=== PATIENT | female | born 1995 | race Caucasian/White ===

== ENCOUNTER 2020-10-09 04:51 | Emergency (ER) | payer BC ==
--- NOTE | 2020-10-09 05:23 | EDM.PDOC ---
ED HPI GENERAL MEDICAL PROBLEM - General Chief Complaint: General Stated Complaint: ALMOST PASSED OUT Time Seen by Provider: 10/09/20 04:59 Source of Information: Reports: Patient History Limitations: Reports: No Limitations - History of Present Illness INITIAL COMMENTS - FREE TEXT/NARRATIVE: Patient is a 24-year-old female who states she felt very lightheaded and tremulous and that her heart was racing only for approximately 6 minutes prior to arrival. Patient does have a sport type watch which did record a heart rate of 136. Patient denies any chest pain at that time and was not short of breath. She was not diaphoretic. She has had a similar bout previously several years ago. She denies drinking alcohol or using street drugs. She denies any bloody or tarry looking stools. She has had no cough or fever or chills. Patient is not at risk for COVID-19. She is not on control and feels that she may be . Onset: Sudden Duration: Resolved Prior to Arrival Associated Symptoms: Reports: No Other Symptoms - Related Data Allergies Allergy/AdvReac Type Severity Reaction Status Date / Time No Known Allergies Allergy Verified 10/09/20 05:03 Home Meds: Home Meds . [No Known Home Meds] 10/09/20 [History] Past Medical History - Past Health History Medical/Surgical History: Denies Medical/Surgical History - Past Surgical History Musculoskeletal Surgical History: Reports: Arthroscopic Knee Social & Family History - Tobacco Use Tobacco Use Status *Q: Never Tobacco User ED ROS GENERAL - Review of Systems Review Of Systems: Comprehensive ROS is negative, except as noted in HPI. ED EXAM, GENERAL - Physical Exam Exam: See Below Exam Limited By: No Limitations General Appearance: Alert, No Apparent Distress Head: Normocephalic Neck: Normal Inspection, Supple Respiratory/Chest: No Respiratory Distress, Lungs Clear, Normal Breath Sounds Cardiovascular: Regular Rate, Rhythm, No JVD, No Murmur GI/Abdominal: Normal Bowel Sounds, Soft, Non-Tender Back Exam: Normal Inspection Extremities: Normal Inspection Neurological: Alert, Oriented Psychiatric: Normal Affect, Normal Mood Skin Exam: Warm, Dry, Normal Color Course - Vital Signs Text/Narrative:: Patient refuses EKG per rhythm strip shows a very normal sinus rhythm. Patient's lab work shows that she is not and her CBC and CMP are within normal limits. Patient did not have another episode while in the emergency department at this time I am recommending she follow-up with a electrical assembly supervisor and to go over to the [facility] to get a cardiac exercise physiologist she can wear at home for 1 to 2 months. She may need to be on cardiac medicine if we can capture her tachycardia and she is instructed to return to ER if having symptoms or feeling worse and to be very cautious with driving and to immediately puller over symptoms were to recur. Last Recorded V/S: Last Vital Signs Temp 98.5 F 10/09/20 05:00 Pulse 82 10/09/20 05:00 Resp 18 10/09/20 05:00 BP 136/85 10/09/20 05:00 Pulse Ox 100 10/09/20 05:00 Orthostatic Blood Pressure [ 128/93 Standing] Orthostatic Blood Pressure [ 128/91 Sitting] Orthostatic Blood Pressure [ 118/79 Supine] - Orders/Labs/Meds Orders: Active Orders 24 hr Category Date Time Status Orthostatic Vital Signs [RC] ASDIRECTED Care 10/09/20 05:28 Active CBC WITH MANUAL DIFF [HEME] Stat Lab 10/09/20 05:47 Results Labs: Laboratory Tests 10/09/20 10/09/20 10/09/20 Range/Units 05:35 05:47 05:47 WBC 5.16 (3.98-10.04) K/mm3 RBC 4.76 (3.98-5.22) M/mm3 Hgb 14.7 (11.2-15.7) gm/dl Hct 43.3 (34.1-44.9) % MCV 91.0 (79.4-94.8) fl MCH 30.9 (25.6-32.2) pg MCHC 33.9 (32.2-35.5) g/dl RDW Std Deviation 46.6 H (36.4-46.3) fL Plt Count 243 (182-369) K/mm3 MPV 10.3 (9.4-12.3) fl Sodium 142 (136-145) mEq/L Potassium 4.0 (3.5-5.1) mEq/L Chloride 105 (98-107) mEq/L Carbon Dioxide 25 (21-32) mEq/L Anion Gap 16.0 H (5-15) BUN 13 (7-18) mg/dL Creatinine 0.8 (0.55-1.02) mg/dL Est Cr Clr Drug Dosing TNP Estimated GFR (MDRD) > 60 (>60) mL/min BUN/Creatinine Ratio 16.3 (14-18) Glucose 96 (70-99) mg/dL Calcium 8.6 (8.5-10.1) mg/dL Total Bilirubin 0.2 (0.2-1.0) mg/dL AST 17 (15-37) U/L ALT 17 (14-59) U/L Alkaline Phosphatase 73 (46-116) U/L Total Protein 7.8 (6.4-8.2) g/dl Albumin 4.0 (3.4-5.0) g/dl Globulin 3.8 gm/dL Albumin/Globulin Ratio 1.1 (1-2) Urine HCG, Qual Negative (NEGATIVE) Departure - Departure Time of Disposition: 06:39 Disposition: Home, Self-Care 01 Condition: Good Clinical Impression: Tachycardia, Lightheadedness - Discharge Information Instructions: Dizziness Referrals: PCP,None [Ordering Only Provider] - Forms: ED Department Discharge Additional Instructions: Follow-up with electrical assembly supervisor and [facility] for ZIO type monitor. Return to ER symptoms are worse. Sepsis Event Note (ED) - Evaluation Sepsis Screening Result: No Definite Risk - Focused Exam Vital Signs: Vital Signs Temp Pulse Resp BP Pulse Ox 10/09/20 05:00 98.5 F 82 18 136/85 100 - My Orders Last 24 Hours: My Active Orders 10/09/20 05:28 Orthostatic Vital Signs [RC] ASDIRECTED 10/09/20 05:47 CBC WITH MANUAL DIFF [HEME] Stat - Assessment/Plan Last 24 Hours: My Active Orders 10/09/20 05:28 Orthostatic Vital Signs [RC] ASDIRECTED 10/09/20 05:47 CBC WITH MANUAL DIFF [HEME] Stat
== END 2020-10-09 06:51 | disposition home or self-care (01) ==
LOC: JD.ED 04:51
DX: R42 Dizziness and giddiness (principal); R00.0 Tachycardia, unspecified
CPT/HCPCS: 36415; 80053; 81025; 85007; 85027; 99284

== ENCOUNTER 2021-07-17 00:26 | Inpatient (IN) | payer MEDICAID ==
[2021-07-17] MEDS ORDERED: Lidocaine 1% 50 ML MDV INJECT PRN (00:55)
[2021-07-17] MEDS ORDERED: Calcium Carbonate 500 MG Tab.Chew PO PRN (00:55)
[2021-07-17] MEDS ORDERED: Ondansetron 4 MG/2 ML SDV IVPUSH PRN (00:55)
[2021-07-17] MEDS ORDERED: Nalbuphine 10 MG/1 ML Vial IVPUSH PRN (00:55)
[2021-07-17] MEDS ORDERED: Sodium Chloride 0.9% 10 ML Syringe FLUSH PRN (00:55)
[2021-07-17] MEDS ORDERED: Acetaminophen 325 MG Tab PO PRN ×2 (00:55→13:25)
[2021-07-17] MEDS ORDERED: Oxytocin/Lactated Ringers 10 UNIT/1,000 ML BAG IV SCH ×2 (01:00)
[2021-07-17] MEDS: Lactated Ringers 1,000 ML IV SCH ×3 (01:11→04:38)
[2021-07-17] MEDS ORDERED: diphenhydrAMINE 50 MG/ML SDV IVPUSH PRN (04:22)
[2021-07-17] MEDS ORDERED: Bupivacaine/fentaNYL/NS 100 ML Bag EPIDUR PRN (04:22)
[2021-07-17] MEDS ORDERED: ePHEDrine 50 MG/ML SDV IVPUSH PRN (04:22)
[2021-07-17] MEDS ORDERED: fentaNYL 100 MCG/2 ML SDV EPIDUR PRN (04:22)
[2021-07-17] MEDS ORDERED: Sodium Chloride 0.9% 10 ML Syringe FLUSH SCH (09:00)
[2021-07-17] MEDS ORDERED: Docusate Sodium 100 MG Cap PO PRN (13:25)
[2021-07-17] MEDS ORDERED: Witch Hazel Medicated Pads 40/Jar TOP PRN (13:25)
[2021-07-17] MEDS ORDERED: Benzocaine/Menthol 20%-0.5% Spray 78 GM Cannister TOP PRN (13:25)
[2021-07-17] MEDS: Ibuprofen 600 MG Tab PO PRN (15:12)
[2021-07-18] MEDS: Ibuprofen 600 MG Tab PO PRN ×5 (00:26→19:12)
[2021-07-18] MEDS: Prenatal Multivitamin with Calcium/Folic Acid/Iron Tab PO SCH (08:26)
[2021-07-19] MEDS ORDERED: Bupivacaine 0.25% 10 ML SDV ONE
[2021-07-19] MEDS: Ibuprofen 600 MG Tab PO PRN ×3 (03:20→12:39)
[2021-07-19] MEDS: Prenatal Multivitamin with Calcium/Folic Acid/Iron Tab PO SCH (08:45)
== END 2021-07-19 16:05 | disposition home or self-care (01) | DRG 807 ==
LOC: JD.OBCHECK 00:26 → JD.OB 00:44 → OBSVTOIN 12:38 → JD.OB 12:38
PROVIDERS: ADMIT Obstetrics & Gynecology; ATTEND Obstetrics & Gynecology
PROC: 10907ZC Drainage of Amniotic Fluid, Therapeutic from Products of Conception, Via Natural or Artificial Opening (ICD-10-PCS; principal; 2021-07-17)
PROC: 10E0XZZ Delivery of Products of Conception, External Approach (ICD-10-PCS; 2021-07-17)
PROC: 0HQ9XZZ Repair Perineum Skin, External Approach (ICD-10-PCS; 2021-07-17)
PROC: 3E0R3BZ Introduction of Anesthetic Agent into Spinal Canal, Percutaneous Approach (ICD-10-PCS; 2021-07-17)
DX: O70.0 First degree perineal laceration during delivery (principal); Z37.0 Single live birth; Z3A.40 40 weeks gestation of pregnancy; Z20.822 Contact with and (suspected) exposure to COVID-19
CPT/HCPCS: 01967; 36415; 51702; 59025; 59409; 85025; 86592; 86850; 86900; 86901; A9270-GY; J2590; J3010; J3490; J7120; U0002

== ENCOUNTER 2023-12-25 11:13 | Inpatient (IN) | payer MEDICAID ==
[~2023-12-25 11:13] MED LIST: Ropivacaine 0.2% PF 2 MG/ML 20 ML SDV ONE
[2023-12-25] MEDS ORDERED: Lidocaine 1% 50 ML MDV INJECT PRN (11:30)
[2023-12-25] MEDS ORDERED: Oxytocin/0.9 % Sodium Chloride 30 UNIT/500 ML BAG IV SCH (11:30)
[2023-12-25] MEDS ORDERED: Calcium Carbonate 500 MG Tab.Chew PO PRN (11:30)
[2023-12-25 12:04] LABS: BASOPHILS PERCENT AUTO 0.2 % (0.0-1.0); EOSINOPHILS PERCENT AUTO 0.2 % (0.0-6.0); HEMATOCRIT 39.6 % (37.0-47.0); HEMOGLOBIN 13.6 gm/dl (12.0-16.0); IMMATURE GRAN ABSOLUTE AUTO 0.03 K/mm3 (0.00-0.05); IMMATURE GRAN PERCENT AUTO 0.4 % (0.0-0.4); LYMPHOCYTES ABSOLUTE AUTO 1.4 K/mm3 (1.0-4.8); LYMPHOCYTES PERCENT AUTO 17.3 % (24.0-44.0); MEAN CORPUSCULAR HEMOGLOBIN 31.2 pg (28.0-32.0); MEAN CORPUSCULAR HGB CONC 34.3 g/dl (32.0-36.0); MEAN CORPUSCULAR VOLUME 90.8 fl (83.0-99.0); MEAN PLATELET VOLUME 11.5 fl (9.4-12.3); MONOCYTES ABSOLUTE AUTO 0.5 K/mm3 (0.0-0.8); MONOCYTES PERCENT AUTO 5.6 % (0.0-8.0); NEUTROPHILS ABSOLUTE AUTO 6.2 K/mm3 (1.8-7.7); NEUTROPHILS PERCENT AUTO 76.3 % (41.0-71.0); PLATELET COUNT,PLT 194 K/mm3 (150-400); RED BLOOD CELL COUNT 4.36 M/mm3 (4.10-5.30); WHITE BLOOD CELL COUNT,WBC 8.08 K/mm3 (3.9-11.3)
[2023-12-25] MEDS: Lactated Ringers 1,000 ML IV SCH (12:19)
[2023-12-25] MEDS: Oxytocin/0.9 % Sodium Chloride 30 UNIT/500 ML BAG IV SCH (12:19)
[2023-12-25 13:42] LABS: A/G RATIO 0.7 (1-2); ALBUMIN 2.7 g/dl (3.4-5.0); ANION GAP 18.7 (5-15); BILIRUBIN TOTAL 0.3 mg/dL (0.2-1.0); CALCIUM 8.6 mg/dL (8.5-10.1); CREATININE 0.8 mg/dL (0.55-1.02); EST CRCL DRUG DOSING (CG) 123.51 mL/min; POTASSIUM,K 3.7 mEq/L (3.5-5.1); PROTEIN TOTAL,TP 6.6 g/dl (6.4-8.2)
[2023-12-25] MEDS ORDERED: diphenhydrAMINE 50 MG/ML SDV IVPUSH PRN (14:03)
[2023-12-25] MEDS ORDERED: ePHEDrine 50 MG/ML SDV IVPUSH PRN (14:03)
[2023-12-25] MEDS: Bupivacaine/fentaNYL/NS 100 ML Bag EPIDUR PRN (14:08)
[2023-12-25] MEDS: fentaNYL 100 MCG/2 ML SDV EPIDUR PRN (14:08)
[2023-12-25] MEDS ORDERED: Misoprostol 200 MCG Tab PO ONE (20:36)
[2023-12-25] MEDS: Misoprostol 200 MCG Tab PO ONE (20:36)
[2023-12-25] MEDS: Tranexamic Acid 1,000 MG/10 ML Vial ONE (20:40)
[2023-12-25 20:55] LABS: HEMATOCRIT 39.6 % (37.0-47.0); HEMOGLOBIN 13.2 gm/dl (12.0-16.0); MEAN CORPUSCULAR HEMOGLOBIN 30.6 pg (28.0-32.0); MEAN CORPUSCULAR HGB CONC 33.3 g/dl (32.0-36.0); MEAN CORPUSCULAR VOLUME 91.7 fl (83.0-99.0); MEAN PLATELET VOLUME 11.1 fl (9.4-12.3); PLATELET COUNT,PLT 185 K/mm3 (150-400); RED BLOOD CELL COUNT 4.32 M/mm3 (4.10-5.30); WHITE BLOOD CELL COUNT,WBC 14.21 K/mm3 (3.9-11.3)
[2023-12-25] MEDS ORDERED: Sodium Chloride 0.9% 10 ML Syringe FLUSH SCH (21:00)
[2023-12-25 21:16] LABS: INR 0.93; PROTHROMBIN TIME 9.9 SECONDS (9.7-12.0)
[2023-12-25 21:32] LABS: PTT,PARTIAL THROMBOPLSTIN TIME 24.6 SECONDS (21.7-31.4)
[2023-12-25] MEDS: Ondansetron 4 MG/2 ML SDV IVPUSH PRN (21:36)
[2023-12-25] MEDS ORDERED: Acetaminophen 325 MG Tab PO PRN (22:02)
[2023-12-25] MEDS: Ibuprofen 600 MG Tab PO SCH (22:36)
[2023-12-25] MEDS: Benzocaine/Menthol 20%-0.5% Spray 78 GM Cannister TOP PRN (22:38)
[2023-12-25] MEDS: Witch Hazel Medicated Pads 40/Jar TOP PRN (22:38)
[2023-12-26 06:40] LABS: HEMATOCRIT 31.2 % (37.0-47.0); MEAN CORPUSCULAR HEMOGLOBIN 31.3 pg (28.0-32.0); MEAN PLATELET VOLUME 11.6 fl (9.4-12.3); PLATELET COUNT,PLT 176 K/mm3 (150-400); RED BLOOD CELL COUNT 3.39 M/mm3 (4.10-5.30); WHITE BLOOD CELL COUNT,WBC 14.84 K/mm3 (3.9-11.3)
[2023-12-26 06:46] LABS: HEMOGLOBIN 10.6 gm/dl (12.0-16.0)
[2023-12-26] MEDS: Ferrous Sulfate 324 MG Tab.EC PO SCH (09:54)
== END 2023-12-27 13:19 | disposition home or self-care (01) | DRG 806 ==
LOC: JD.OB 11:13 → OBSVTOIN 20:24 → JD.OB 20:25
PROVIDERS: ADMIT Obstetrics & Gynecology; ATTEND Obstetrics & Gynecology
PROC: 10E0XZZ Delivery of Products of Conception, External Approach (ICD-10-PCS; principal; 2023-12-25)
PROC: 10907ZC Drainage of Amniotic Fluid, Therapeutic from Products of Conception, Via Natural or Artificial Opening (ICD-10-PCS; 2023-12-25)
PROC: 0HQ9XZZ Repair Perineum Skin, External Approach (ICD-10-PCS; 2023-12-25)
PROC: 3E0R3BZ Introduction of Anesthetic Agent into Spinal Canal, Percutaneous Approach (ICD-10-PCS; 2023-12-25)
PROC: 00HU33Z Insertion of Infusion Device into Spinal Canal, Percutaneous Approach (ICD-10-PCS; 2023-12-25)
DX: O36.63X0 Maternal care for excessive fetal growth, third trimester, not applicable or unspecified (principal); D62 Acute posthemorrhagic anemia; Z37.0 Single live birth; O72.1 Other immediate postpartum hemorrhage; O48.0 Post-term pregnancy; Z3A.40 40 weeks gestation of pregnancy; O70.0 First degree perineal laceration during delivery; O90.81 Anemia of the puerperium
CPT/HCPCS: 36415; 51702; 51798; 59025; 59409; 80053; 85025; 85027; 85384; 85610; 85730; 86592; 86850; 86900; 86901; A9270-GY; J2405; J2795; J3010; J3490; J7120; J7999

== ENCOUNTER 2024-07-18 17:01 | Emergency (ER) | payer MEDICAID ==
[2024-07-18 18:37] LABS: APPEARANCE,URINE CLEAR (Clear); BILIRUBIN,URINE NEGATIVE (Negative); COLOR,URINE YELLOW (Yellow); GLUCOSE,URINE NEGATIVE (Negative); KETONES,URINE 1+ (Negative); LEUKOCYTE ESTERASE,URINE NEGATIVE (Negative); NITRITE,URINE NEGATIVE (Negative); OCCULT BLOOD,URINE 2+ (Negative); PH,URINE 6.5 (5.0-8.0); PROTEIN,URINE NEGATIVE (Negative); UROBILINOGEN,URINE 0.2 (0.2-1.0)
[2024-07-18 18:51] LABS: BACTERIA,URINE FEW /hpf (FEW); EPITHELIAL CELLS,URINE 0-5 /hpf (0-5); WBC,URINE 0-5 /hpf (0-5)
[2024-07-18 18:52] LABS: MUCUS,URINE FEW /hpf (FEW)
== END 2024-07-18 19:40 | disposition home or self-care (01) ==
LOC: JD.ED 17:01
DX: R30.0 Dysuria (principal); R31.9 Hematuria, unspecified; R10.32 Left lower quadrant pain
CPT/HCPCS: 74176; 74176-26; 81001; 99284